=== PATIENT | female | born 1985 | race Caucasian/White ===

== ENCOUNTER 2023-11-06 17:17 | Emergency (ER) | payer OTHER, SELFPAY ==
[2023-11-06 17:19] VITALS: BP 123/90
--- NOTE | 2023-11-06 17:41 | ED.GENMED ---
History of Present Illness
General
Chief Complaint: Headache
Source: patient
Time Seen by Provider: 11/06/23 17:25
History of Present Illness
History of Present Illness:
38yoF with a history of migraines, anxiety, and depression presenting for evaluation of a headache. She reports a gradual onset of a headache 1 week ago. The pain is describes as a pressure and is currently rated as a 9/10 in severity. She states
her headache is sharper than her typical migraines. Her migraines also do not typically last this long. She denies this being the worst headache of her life. She has been taking Excedrin without relief. She called her neurologist a few days ago who
prescribed her a triptan. She took 2 doses thus far without any change in her symptoms. Patient denies any fevers, chills, neck stiffness, vomiting, dizziness, visual changes, weakness, balance issues. No reported head trauma. Patient sustained a
concussion about 6 years ago and has been having issues with headaches since then.
Past History
Past History
ED Past Medical History: Other (Vertigo, Ulcers, anxiety, 'multiple undiagnosed medical problems'); Negative Asthma, HTN, Hypercholesterolemia or NIDDM
ED Past Surgical History: Appendectomy
Social History
Tobacco: Non-smoker
Alcohol: Occasional
Drug: None
Personal:
Living: with family
Employment: Employed
Phy Exam
General Physical Exam
General Presentation: well appearing and no apparent distress
General age: appears stated age
General Skin: warm and dry
General Habitus: normal
General Mental: alert
ENT Exam
ENT Exam: neck supple and normocephalic
Additional ENT: No meningismus
Eye Exam
Eye Exam: PERRL
Cardiovascular Exam
Cardiovascular Exam: regular rate/rhythm
Pulmonary Exam
Pulmonary Exam: lungs clear, no respiratory distress, no crackles and no wheezing
Neurological Exam
Neurological Exam: alert, no motor deficits and other (CN 2-12 intact. PERRL. 5/5 strength in all extremities. Normal finger to nose and heel to silveira bilaterally. )
Jefferson Coma Scale
Eye Opening: Spontaneous
Verbal Response: Oriented
Motor Response: Obeys Commands
GCS Total Score: 15
Skin Exam
Skin Exam: normal color and warm/dry
Psychiatric Exam
Psychiatric Exam: normal mood/affect
Course
Orders/Labs/Results
Orders:
Orders
11/06/23 17:37
CT Head W/o Iv Contrast Urgent
Comment:
Reason For Exam: Acute headache
0.9% Sodium Chloride 1000 ml [Nss] 1,000 ml IV BOLUS
Diphenhydramine [Benadryl] 25 mg IV NOW STA
Ketorolac [Toradol] 15 mg IV NOW STA
Magnesium Sulfate 2 Gram/50 ml [Magnesium Sulfate] 2 gram in 50 ml IV NOW
Metoclopramide [Reglan] 10 mg IV NOW STA
Test Result ONCE
11/06/23 17:56
, Urine Qualitative Screen [HCG, Urine Qualitative Screen] Urgent
Date Specimen was Collected: 11/06/23
Time Specimen was Collected: 17:39
11/06/23 19:38
Acetaminophen 1000MG/100Ml [Ofirmev] 1,000 mg in 100 ml IV ONCE
Acetaminophen IV Indication:: ED Narcotic Naive Pt-ONCE
Dexamethasone Sod Phosphate [Decadron] 10 mg IV NOW STA
Diphenhydramine [Benadryl] 25 mg IV NOW STA
Ketorolac [Toradol] 15 mg IV NOW STA
Vital Signs
Initial and Last Documented VS:
Initial Vital Signs
Temp Pulse Resp BP Pulse Ox
97.1 F 102 16 123/90 98
11/06/23 17:19 11/06/23 17:19 11/06/23 17:19 11/06/23 17:19 11/06/23 17:19
Last Documented Vital Signs
Temp Pulse Resp BP Pulse Ox
97.4 F 93 17 102/73 98
11/06/23 19:01 11/06/23 19:01 11/06/23 19:01 11/06/23 19:01 11/06/23 19:01
MDM/Problems Addressed
Differential Diagnosis Includes:
38yoF here with a headache x 1 week. Gradual in onset. Hx of migraines but this is sharper than usual and lasting longer. Not worst of life. No fevers or neck stiffness. No head trauma. She is afebrile and hemodynamically stable. She is
well-appearing in no acute distress. No focal neuro deficits or nuchal rigidity on exam. Differential diagnosis includes but is not limited to: Migraine, tension headache, doubt meningitis, doubt intracranial
Initial ED plan: Given atypical symptoms, will obtain CT head. IV migraine cocktail and reassess.
*Critical Care Note
Total Time (30-74mins, 75-104mins- exclusive of procedures): Not Applicable
Update Note
Update Note:
CT is negative for acute findings. Imaging unchanged from prior. Patient received 2 rounds of medications during ED stay. On reassessment, her headache is improved and is currently a 7/10 in severity. Patient is requesting to be discharged so
that she may go home and rest. She has an appointment with her neurologist scheduled in 5 days. Strict ED return precautions discussed. She was discharged in stable condition.
ED Attending Note
-
Portions of this chart may have been created with voice recognition software.� Occasional wrong word or��sound alike� substitutions may have occurred due to the inherent limitations of voice recognition software.
Discharge Plan
Departure
Patient Disposition: Home (Routine Discharge)
Date of Disposition: 11/06/23
Time of Disposition: 20:41
Patient with high blood pressure during this ER visit?: No
Discharge Problem:
Acute nonintractable headache
Instructions: Migraines (DC)
Prescriptions:
No Action
ranitidine HCl [Zantac Maximum Strength] 150 MG tablet
150 mg PO HSPRN PRN (Reason: acid reflux)
omeprazole 20 MG capsule,delayed release(DR/EC)
20 mg PO DAILY
Referrals:
Fabi Villeda MD [Family Provider] -
Activity Restrictions/Additional Instructions:
Drink plenty of fluids. Continue taking Excedrin as needed.
Please follow-up with your family doctor and neurology. Return to the ER with any new or worsening symptoms.
Interventions
Interventions:
*Risk Screen - Suicide Last Done: 11/06/23 17:19
*General Assessment Last Done: 11/06/23 17:19
*Neglect/Abuse Screening Last Done: 11/06/23 17:19
*ED COVID-19 Vaccine History Last Done: 11/06/23 17:58
ED- Neurological Assessment Last Done: 11/06/23 17:57
Discharge Date and Time
Print Language: AZERI
[2023-11-06] MEDS: NSS 1000 IV (17:51)
[2023-11-06] MEDS: TORADOL 15 MG IV ×2 (17:51→19:49)
[2023-11-06] MEDS: REGLAN 10 MG IV (17:52)
[2023-11-06] MEDS: BENADRYL 25 MG IV ×2 (17:52→19:48)
[2023-11-06] MEDS: MAGNESIUM SULFATE 50 IV (17:53)
[2023-11-06 17:56] VITALS: BMI 26.4
[2023-11-06 18:07] LABS: HCG, Urine Qualitative Screen Negative
[2023-11-06 19:01] VITALS: BP 102/73
[2023-11-06] MEDS: OFIRMEV 100 IV (19:48)
[2023-11-06] MEDS: DECADRON 10 MG IV (19:49)
[2023-11-06 20:52] VITALS: BP 117/73
== END 2023-11-06 21:06 | disposition home or self-care (01) ==
LOC: EMR 17:17
PROVIDERS: Physician Assistant; EMERGENCY PHYSICIAN Emergency Medicine; FAMILY PHYSICIAN Family Medicine
DX: R51.9 Headache, unspecified (principal); F41.9 Anxiety disorder, unspecified; F32.A Depression, unspecified; Z87.820 Personal history of traumatic brain injury
CPT/HCPCS: 99284; 96365; 96375 ×5; 96376 ×2; 70450; 81025